=== PATIENT | female | born 1960 | race Asian ===

== ENCOUNTER 2019-08-03 19:33 | Emergency (ER) | payer MEDICAID ==
[~2019-08-03] VITALS: Ht 160 cm; Wt 60.4 kg
[2019-08-03 19:40] VITALS: BP 172/93
--- NOTE | 2019-08-03 19:59 | NUR ---
59 YO FEMALE CO GENERAL BODY ACHES, FEVER AND DIZZINESS SINCE TODAY. PT DENIES ANY N/V/D. LUNG SOUNDS CLEAR THROUGHOUT. PT HAS HX OF HTN, NO RX MEDS AT THIS TIME.
[2019-08-03] MEDS ORDERED: IBUPROFEN 400 MG TAB PO ONE (20:45)
[2019-08-03] MEDS ORDERED: ACETAMINOPHEN EXTRA STRENGTH 500 MG TAB PO ONE (20:45)
[2019-08-03] MEDS ORDERED: MECLIZINE 25 MG TAB PO ONE (20:45)
--- NOTE | 2019-08-03 20:54 | NUR ---
LAB AT BEDSIDE
[2019-08-03 21:01] LABS: BASOPHILS % (AUTO) 0.5 % (0.0-2.0); EOSINOPHILS # (AUTO) 0.1 K/uL (0-0.4); HEMATOCRIT 36.3 % (36-48); HEMOGLOBIN 11.7 g/dL (12.0-16.0); MEAN CORPUSCULAR HEMOGLOBIN 28 pg (27-31); MEAN CORPUSCULAR HGB CONC 32 g/dL (33-37); MEAN CORPUSCULAR VOLUME 85.1 fL (80-94); MONOCYTES # (AUTO) 0.4 K/uL (0.8-1.0); MONOCYTES % (AUTO) 4.9 % (1.7-9.3); NEUTROPHILS # (AUTO) 6.4 K/uL (1.8-7.7); NEUTROPHILS % (AUTO) 71.6 % (42.2-75.2); PLATELET COUNT (AUTO) 351 K/uL (140-450); RED BLOOD CELL COUNT(AUTO) 4.27 MIL/uL (4.20-5.40); RED CELL DISTRIBUTION WIDTH 13.2 % (11.6-13.7); WHITE BLOOD COUNT (AUTO) 8.9 K/uL (4.8-10.8)
[2019-08-03 21:15] LABS: ANION GAP 13.7 (8-16); CARBON DIOXIDE 27.9 mmol/L (21-32); CREATININE 0.7 mg/dL (0.6-1.3); POTASSIUM 3.6 mmol/L (3.5-5.1)
--- NOTE | 2019-08-03 21:15 | NUR ---
RAD AT BEDSIDE
[2019-08-03 23:39] VITALS: BP 159/89
--- NOTE | 2019-08-03 23:40 | NUR ---
Patient discharged with v/s stable. Written and verbal after care instructions given and explained. Patient alert, oriented and verbalized understanding of instructions. Ambulatory with steady gait. All questions addressed prior to discharge. ID band removed. Patient advised to follow up with PMD. Rx of TAMIFLU, IBUPROFEN given. Patient educated on indication of medication including possible reaction and side effects. Opportunity to ask questions provided and answered.
== END 2019-08-03 23:39 | disposition home or self-care (01) ==
LOC: MED 19:33
DX: J11.1 Influenza due to unidentified influenza virus with other respiratory manifestations (principal); I10 Essential (primary) hypertension
CPT/HCPCS: 36415; 71045; 80048; 84484; 85025; 87804; 99284; J8597

== ENCOUNTER 2019-10-07 14:43 | Emergency (ER) | payer MEDICAID, SELFPAY ==
[~2019-10-07] VITALS: Ht 154.9 cm; Wt 59.0 kg
[2019-10-07 14:55] VITALS: BP 154/99
--- NOTE | 2019-10-07 15:13 | NUR ---
PT TAKEN TO ER BED 12
--- NOTE | 2019-10-07 15:29 | NUR ---
C/O BURNING SENSATION THROUGHOUT BODY X 3 DAYS ---SUDDEN ONSET DENIES RASH OR TAKING NEW MEDICATION ----NO RASH NOTED---ALTHOUGH WEEMS FROM "COINING" NOTED CURRENTLY BEING TREATED FOR UTI WITH BACTRIM 10/03/2019
[2019-10-07] MEDS ORDERED: NACL 0.9% 1,000 ML IV ONE (15:30)
[2019-10-07 15:53] LABS: BASOPHILS % (AUTO) 0.6 % (0.0-2.0); EOSINOPHILS % (AUTO) 0.2 % (0.0-4.0); HEMATOCRIT 37.5 % (36-48); HEMOGLOBIN 12.1 g/dL (12.0-16.0); LYMPHOCYTES # (AUTO) 1.3 K/uL (2.5-16.5); MEAN CORPUSCULAR HEMOGLOBIN 28 pg (27-31); MEAN CORPUSCULAR HGB CONC 32 g/dL (33-37); MEAN CORPUSCULAR VOLUME 86.1 fL (80-94); MONOCYTES # (AUTO) 0.4 K/uL (0.8-1.0); MONOCYTES % (AUTO) 6.6 % (1.7-9.3); NEUTROPHILS # (AUTO) 4.9 K/uL (1.8-7.7); NEUTROPHILS % (AUTO) 72.6 % (42.2-75.2); PLATELET COUNT (AUTO) 386 K/uL (140-450); RED BLOOD CELL COUNT(AUTO) 4.35 MIL/uL (4.20-5.40); RED CELL DISTRIBUTION WIDTH 13.9 % (11.6-13.7); WHITE BLOOD COUNT (AUTO) 6.7 K/uL (4.8-10.8)
[2019-10-07 16:01] LABS: APPEARANCE,URINE CLEAR (CLEAR); BILIRUBIN,URINE NEGATIVE (NEGATIVE); BLOOD, URINE 1+ (NEGATIVE); COLOR,URINE YELLOW (YELLOW); LEUKOCYTE ESTERASE ,URINE NEGATIVE (NEGATIVE); NITRITE, URINE NEGATIVE (NEGATIVE); UGLUCOSE NEGATIVE (NEGATIVE)
[2019-10-07 16:44] LABS: ALBUMIN 4.1 g/dL (3.4-5.0); ANION GAP 11.7 (8-16); CARBON DIOXIDE 26.7 mmol/L (21-32); POTASSIUM 3.4 mmol/L (3.5-5.1); TOTAL BILIRUBIN 0.2 mg/dL (0.0-1.0)
[2019-10-07 17:12] LABS: RBC,URINE 0-5 /HPF (0-5); WBC,URINE NONE SEEN /HPF (0-5)
--- NOTE | 2019-10-07 17:12 | NUR ---
PHILIP COLLECTED AND HANDED TO LAB
[2019-10-07 17:15] VITALS: BP 134/78
--- NOTE | 2019-10-07 17:15 | NUR ---
Patient discharged with v/s stable. Written and verbal after care instructions given and explained. Patient verbalized understanding. Ambulatory with steady gait. All questions addressed prior to discharge. Advised to follow up with PMD.
== END 2019-10-07 17:15 | disposition home or self-care (01) ==
LOC: MED 14:43 → EEVIPCON 14:43 → MED 17:15
DX: M79.10 Myalgia, unspecified site (principal); E87.2 Acidosis; I10 Essential (primary) hypertension; Z90.49 Acquired absence of other specified parts of digestive tract; Z20.828 Contact with and (suspected) exposure to other viral communicable diseases
CPT/HCPCS: 36415; 71045; 80053; 81001; 83605; 84484; 85025; 87040; 87086; 87804; 93005; 99285; C9803; J7030; U0003

== ENCOUNTER 2020-06-19 10:23 | Emergency (ER) | payer MEDICAID, SELFPAY ==
[~2020-06-19] VITALS: Ht 152.4 cm; Wt 55.3 kg
[2020-06-19 10:29] VITALS: BP 148/90
--- NOTE | 2020-06-19 10:38 | NUR ---
Patient ambulated to bed 4. RN evaluating the patient at bedside.
--- NOTE | 2020-06-19 10:46 | NUR ---
Received care of 60 y/o female c/o epigastric pain radiating to middle back x 2 weeks. Reports hyperlipidemia & Sx Hx of hysterectomy with NKA.
--- NOTE | 2020-06-19 11:10 | NUR ---
Dr. Saunders is evaluating the patient at bedside.
[2020-06-19] MEDS: ALUMINUM HYD/MAG/SIMETHICONE 30 ML UDC PO ONE (11:27)
[2020-06-19] MEDS: FAMOTIDINE 20 MG TAB PO ONE (11:28)
[2020-06-19 11:36] LABS: BASOPHILS % (AUTO) 0.6 % (0.0-2.0); EOSINOPHILS % (AUTO) 0.3 % (0.0-4.0); HEMATOCRIT 36.3 % (36-48); HEMOGLOBIN 11.9 g/dL (12.0-16.0); LYMPHOCYTES # (AUTO) 1.2 K/uL (2.5-16.5); LYMPHOCYTES % (AUTO) 16.5 % (20.5-51.1); MEAN CORPUSCULAR HEMOGLOBIN 28 pg (27-31); MEAN CORPUSCULAR HGB CONC 33 g/dL (33-37); MEAN CORPUSCULAR VOLUME 86.7 fL (80-94); MONOCYTES # (AUTO) 0.4 K/uL (0.8-1.0); MONOCYTES % (AUTO) 6.1 % (1.7-9.3); NEUTROPHILS # (AUTO) 5.5 K/uL (1.8-7.7); NEUTROPHILS % (AUTO) 76.5 % (42.2-75.2); PLATELET COUNT (AUTO) 363 K/uL (140-450); RED BLOOD CELL COUNT(AUTO) 4.18 MIL/uL (4.20-5.40); RED CELL DISTRIBUTION WIDTH 13.5 % (11.6-13.7); WHITE BLOOD COUNT (AUTO) 7.2 K/uL (4.8-10.8)
[2020-06-19 11:51] LABS: ANION GAP 11.1 (8-16); CARBON DIOXIDE 28.9 mmol/L (21-32); CREATININE 0.7 mg/dL (0.6-1.3); TOTAL BILIRUBIN 0.3 mg/dL (0.0-1.0)
[2020-06-19] MEDS: POTASSIUM CHLORIDE 10 MEQ TABER PO ONE (12:10)
[2020-06-19 12:45] VITALS: BP 129/82
--- NOTE | 2020-06-19 12:45 | NUR ---
Patient discharged with v/s stable. Written and verbal after care instructions given and explained. Patient alert, oriented and verbalized understanding of instructions. Ambulatory with steady gait. All questions addressed prior to discharge. ID band removed. Patient advised to follow up with PMD. Rx of Pepcid 20mg given. Patient educated on indication of medication including possible reaction and side effects. Opportunity to ask questions provided and answered.
== END 2020-06-19 12:45 | disposition home or self-care (01) ==
LOC: MED 10:23
DX: K29.70 Gastritis, unspecified, without bleeding (principal); E87.6 Hypokalemia; K21.9 Gastro-esophageal reflux disease without esophagitis; I10 Essential (primary) hypertension; E78.00 Pure hypercholesterolemia, unspecified; Z79.899 Other long term (current) drug therapy
CPT/HCPCS: 36415; 80053; 81002; 83690; 84484; 85025; 93005; 99284

== ENCOUNTER 2023-06-26 11:02 | Emergency (ER) | payer MEDICARE, MEDICAID ==
[~2023-06-26] VITALS: Ht 152.4 cm; Wt 59.0 kg
[2023-06-26 11:20] VITALS: BP 142/83; PULSE 80; RESP 18; TEMP 97.8; O2SAT 98
[2023-06-26] MEDS ORDERED: PROM118S5 PO (14:08)
[2023-06-26] MEDS ORDERED: AZIT250T4 PO (14:08)
[2023-06-26] MEDS ORDERED: METH4TAB1 PO (14:08)
[2023-06-26 14:23] VITALS: BP 140/82; PULSE 80; RESP 16; TEMP 98; O2SAT 99
== END 2023-06-26 14:23 | disposition home or self-care (01) ==
LOC: MED 11:02
DX: J20.9 Acute bronchitis, unspecified (principal); I10 Essential (primary) hypertension; K21.9 Gastro-esophageal reflux disease without esophagitis; Z79.899 Other long term (current) drug therapy
CPT/HCPCS: 71045; 99283

== ENCOUNTER 2023-12-28 08:56 | Emergency (ER) | payer MEDICARE, MEDICAID ==
[~2023-12-28] VITALS: Ht 152.4 cm; Wt 60.8 kg
[~2023-12-28 08:56] MED LIST: AZIT250T4 PO; METH4TAB1 PO; PROM118S5 PO
[2023-12-28 08:57] VITALS: BP 135/81; PULSE 69; RESP 15; TEMP 98.4; O2SAT 97
[2023-12-28] MEDS ORDERED: MIDAZOLAM 5 MG/5 ML VIAL IM ONE (10:20)
[2023-12-28] MEDS ORDERED: MECL-303 PO (10:21)
[2023-12-28] MEDS: DIAZEPAM PFS 10 MG/2 ML SYR IM ONE (10:34)
[2023-12-28 10:35] VITALS: O2SAT 98
[2023-12-28 10:38] VITALS: BP 137/68; PULSE 61; RESP 11; TEMP 98.1; O2SAT 98
== END 2023-12-28 10:42 | disposition home or self-care (01) ==
LOC: MED 08:56
DX: H81.13 Benign paroxysmal vertigo, bilateral (principal); K21.9 Gastro-esophageal reflux disease without esophagitis; I10 Essential (primary) hypertension; E78.5 Hyperlipidemia, unspecified; Z79.2 Long term (current) use of antibiotics; Z79.899 Other long term (current) drug therapy
CPT/HCPCS: 96372; 99283; J3360

== ENCOUNTER 2024-02-06 18:32 | Emergency (ER) | payer MEDICARE, MEDICAID ==
[~2024-02-06] VITALS: Ht 149.9 cm; Wt 60.8 kg
[~2024-02-06 18:32] MED LIST changes: +MECL-303 PO
[2024-02-06 18:52] VITALS: BP 145/71; PULSE 70; RESP 18; TEMP 97.3; O2SAT 98
[2024-02-06 19:07] VITALS: TEMP 97.3
[2024-02-06] MEDS: NACL 0.9% 1,000 ML IV ONE (20:23)
[2024-02-06 20:29] LABS: BASOPHILS # (AUTO) 0.1 K/uL (0.00-0.22); BASOPHILS % (AUTO) 0.8 % (0.0-2.0); EOSINOPHILS # (AUTO) 0.1 K/uL (0-0.4); EOSINOPHILS % (AUTO) 1.4 % (0.0-4.0); HEMATOCRIT 36.9 % (36-48); HEMOGLOBIN 12.2 g/dL (12.0-16.0); LYMPHOCYTES # (AUTO) 2.5 K/uL (2.5-16.5); MEAN CORPUSCULAR HEMOGLOBIN 27 pg (27-31); MEAN CORPUSCULAR HGB CONC 33 g/dL (33-37); MEAN CORPUSCULAR VOLUME 82.8 fL (80-94); MONOCYTES # (AUTO) 0.5 K/uL (0.8-1.0); NEUTROPHILS # (AUTO) 4.6 K/uL (1.8-7.7); NEUTROPHILS % (AUTO) 58.8 % (42.2-75.2); PLATELET COUNT (AUTO) 337 K/uL (140-450); RED BLOOD CELL COUNT(AUTO) 4.46 MIL/uL (4.20-5.40); RED CELL DISTRIBUTION WIDTH 13.5 % (11.6-13.7); WHITE BLOOD COUNT (AUTO) 7.8 K/uL (4.8-10.8)
[2024-02-06 20:45] LABS: ALBUMIN 3.8 g/dL (3.4-5.0); ANION GAP 8.6 (8-16); CALCIUM 9.4 mg/dL (8.5-10.1); CARBON DIOXIDE 34.2 mmol/L (21-32); CREATININE 0.7 mg/dL (0.6-1.3); TOTAL BILIRUBIN 0.2 mg/dL (0.0-1.0); TOTAL PROTEIN, SERUM 8.1 g/dL (6.4-8.2)
[2024-02-06 20:46] LABS: POTASSIUM 2.8 mmol/L (3.5-5.1)
[2024-02-06 20:52] LABS: APPEARANCE,URINE CLEAR (CLEAR); BILIRUBIN,URINE NEGATIVE (NEGATIVE); BLOOD, URINE NEGATIVE (NEGATIVE); COLOR,URINE YELLOW (YELLOW); LEUKOCYTE ESTERASE ,URINE 1+ (NEGATIVE); NITRITE, URINE NEGATIVE (NEGATIVE); PROTEIN,URINE NEGATIVE (NEGATIVE); UGLUCOSE NEGATIVE (NEGATIVE); UROBILINOGEN,URINE 0.2 EU/dL (0.2 - 1)
[2024-02-06 21:04] LABS: BACTERIA,URINE FEW /HPF (None Seen); RBC,URINE 0-5 /HPF (0-5); SQUAMOUS EPITHELIAL CELL,UR 0-3 (FEW) /LPF (0-3 (FEW))
[2024-02-06] MEDS: POTASSIUM CHLORIDE 10 MEQ TABER PO SCH (21:19)
[2024-02-06 21:32] VITALS: BP 137/75; PULSE 66; RESP 14; O2SAT 95
[2024-02-06] MEDS ORDERED: ALUMINUM HYD/MAG/SIMETHICONE 30 ML UDC ONE (22:43)
[2024-02-06] MEDS ORDERED: DICYCLOMINE HCL LIQUID 10 MG/5 ML UDC ONE (22:44)
[2024-02-06] MEDS: DICYCLOMINE HCL LIQUID 20 MG, ALUMINUM HYD/MAG/SIMETHICONE 30 ML, LIDOCAINE VISCOUS 2% ... PO ONE (22:45)
[2024-02-06] MEDS ORDERED: FAMO-90 PO (23:06)
== END 2024-02-06 23:16 | disposition home or self-care (01) ==
LOC: MED 18:32
DX: K29.70 Gastritis, unspecified, without bleeding (principal); E87.6 Hypokalemia; I10 Essential (primary) hypertension; E78.00 Pure hypercholesterolemia, unspecified; Z20.822 Contact with and (suspected) exposure to COVID-19; Z79.899 Other long term (current) drug therapy
CPT/HCPCS: 36415; 80053; 81001; 83690; 83735; 85025; 87086; 87426; 96360; 99284; J7030